=== PATIENT | male | born 1950 | race Two or more races ===

== ENCOUNTER 2025-03-26 02:49 | Inpatient (IN) | payer MEDICARE, OTHER ==
[~2025-03-26] VITALS: Ht 172.7 cm; Wt 95.4 kg
[~2025-03-26 02:49] MED LIST: DESV100T8 OR; ESOM20CA PO; FLUO20CA19 PO; LOVA40TA72 PO; NEBI10TA2 PO
--- NOTE | 2025-03-26 03:16 | ED.PDOC ---
Altered Mental Status HPI Comments 74 year old male presents to the ED via EMS with a a chief compliant of ALOC onset today. Per EMS, patient's called 911 due to patient being altered, he was found on the toilet was not able to get up due to weakness. Upon EMS arrival, patient was A&O x1, baseline is A&O x4. EMS was told by , for the past 2 weeks patient has been experiencing generalized weakness, had an appointment this morning at [facility] for admission, to follow up on his Leukemia. Glucose read "high" in route to ED and upon ED arrival. Patient is poor historian, only states he is not feeling well. PMHx Leukemia, HTN, HLD. No other symptoms or modifying factors present at this time. Chief Complaint: ALOC Time Seen by MD: 03:05 Primary Care Provider: GALEN Andrews Notes: Medications, Allergies Allergies: Coded Allergies: NO KNOWN ALLERGIES (Unverified , 12/04/14) Home Meds Reported Medications Desvenlafaxine (DESVENLAFAXINE ER) 100 Mg Tab, 100 MG OR DAILY, TAB 12/04/14 Nebivolol Hcl (Bystolic) 10 Mg Tab, 1 TAB PO DAILY, #90 TAB 1 Refill 12/04/14 Lovastatin (Lovastatin) 40 Mg Tab, 1 TAB PO DAILY, #30 TAB 5 Refills 12/04/14 Fluoxetine Hcl (Pmdd) (Fluoxetine) 20 Mg Cap, 1 CAP PO DAILY, #90 CAP 1 Refill 12/04/14 Esomeprazole Magnesium Trihydr (Nexium) 20 Mg Cap, 1 CAP PO DAILY, #30 CAP 2 Refills 12/04/14 Information Source: Emergency Med Personnel Mode of Arrival: EMS Severity: Moderate Timing: Hours Duration: Since onset Prehospital treatment: None Quality: Decreased Alertness, Change in Behavior Recent: None History of: None Past Medical History PAST MEDICAL HISTORY: Cancer, Depression, High Lipids, HTN Family History Family History: Unobtainable Social History Smoker: Cigarettes, Greater Than 1 Pack/Day Alcohol: Heavy Drugs: Denies Drug Use Lives In: Home Unable to Obtain due to: Altered Mental Status Physical Exam General Appearance: Normal, Other (confused) HEENT: Normal ENT Inspection, Pharynx Normal, TMs Normal Neck: Full Range of Motion, Non-Tender, Normal, Normal Inspection Respiratory: Chest Non-Tender, Lungs Clear, No Accessory Muscle Use, No Respiratory Distress, Normal Breath Sounds Cardiovascular: No Edema, No JVD, No Murmur, No Gallop, Tachycardia Breast Exam: Deferred Gastrointestinal: No Organomegaly, Non Tender, No Pulsatile Mass, Normal Bowel Sounds, Soft Genitalia: Deferred Pelvic: Deferred Rectal: Deferred Extremities: No calf tenderness, Normal capillary refill, Normal inspection, Normal range of motion, Non-tender, No pedal edema Musculoskeletal : Apperance: Normal Neurologic: Disoriented Cerebellar Function: Normal Reflexes: Normal Skin: Dry, Normal Color, Warm Lymphatic: No Adenopathy Was a procedure done? Was a procedure done?: No Differential Diagnosis (ALOC) Differential Diagnosis: Hypoglycemia, DKA, Encephalopathy, Closed Head Injury X-Ray, Labs, Meds, VS Vital Signs Date Time Temp Pulse Resp B/P (MAP) Pulse Ox O2 Delivery O2 Flow Rate FiO2 03/26/25 02:55 97.9 125 18 180/100 95 97.9 03/26/25 02:54 115 Lab Test 03/26/25 04:03 Range/Units White Blood Count 15.5 H 4.4-10.8 10^3/uL Red Blood Count 5.80 4.5-5.90 10^6/uL Hemoglobin 16.5 13.5-17.5 g/dL Hematocrit 53.1 H 41.0-53.0 % Mean Corpuscular Volume 91.5 80.0-100.0 fL Mean Corpuscular Hemoglobin 28.5 28.0-32.0 pg Mean Corpuscular Hemoglobin Concent 31.1 L 32.0-36.0 g/dL Red Cell Distribution Width 16.2 H 11.8-14.3 % Platelet Count 196 140-450 10^3/uL Mean Platelet Volume 8.4 6.9-10.8 fL Neutrophils (%) (Auto) 91.7 H 37.0-80.0 % Lymphocytes (%) (Auto) 2.0 L 10.0-50.0 % Monocytes (%) (Auto) 6.2 0.0-12.0 % Eosinophils (%) (Auto) 0.0 0.0-7.0 % Basophils (%) (Auto) 0.1 0.0-2.0 % Neutrophils # (Auto) 14.2 H 1.6-8.6 10 ^3/uL Lymphocytes # (Auto) 0.3 L 0.4-5.4 10 ^3/uL Monocytes # (Auto) 1.0 0-1.3 10 ^3/uL Eosinophils # (Auto) 0 0-0.8 10 ^3/uL Basophils # (Auto) 0 0-0.2 10 ^3/uL Nucleated Red Blood Cells 0.1 % Sodium Level 134 L 136-145 mmol/L Potassium Level 6.7 *H 3.5-5.1 mmol/L Chloride Level 99 98-107 mmol/L Carbon Dioxide Level 13 L 20-31 mmol/L Anion Gap 22 H 5-15 Blood Urea Nitrogen 40 H 9-23 mg/dL Creatinine 2.46 H 0.700-1.30 mg/dL Glomerular Filtration Rate Calc 26 >90 mL/min BUN/Creatinine Ratio 16.3 10.0-20.0 Serum Glucose Pending Lactic Acid Level 2.3 *H 0.4-2.0 mmol/L Calcium Level 8.8 8.7-10.4 mg/dL Troponin I High Sensitivity 18 </=54 ng/L B-Type Natriuretic Peptide Pending Beta-Hydroxybutyric Acid Pending Current Medications Medications (Trade) Dose Ordered Sig/Rudy Route Start Time Stop Time Status Last Admin Sodium Chloride 1,000 ml @ 1,000 mls/hr Q1H ONCE IV 03/26/25 03:15 03/26/25 04:14 DC 03/26/25 03:21 [place] [address] Ph: [phone] DIAGNOSTIC IMAGING Diagnostic Imaging Report : [id number] Signed PATIENT: MONA BANEGAS ACCT: [id number] UNIT: [id number] : 1950 LOC: ER ROOM / BED: / AGE / SEX: 74 / M ADM STATUS: REG ER SERVICE 0303 ORDERING PHYSICIAN: AMINA GRAY MD PROCEDURE(s): HWOCT - HEAD WITHOUT CONTRAST REASON: [facility] ORDER NUMBER(s): [id number], ACCESSION NUMBER(s): [id number] EXAM: CT HEAD WITHOUT CONTRAST INDICATION: ams TECHNIQUE: CT of the head without intravenous contrast. Radiation Dose : 1. Head: CT Dose: CTDI volume is 64.09 mGy. Dose-length product is 1262.87 mGy*cm The dose indicators for CT are the volume Computed Tomography (CT) Dose Index (CTDIvol) and the Dose Length Product (DLP), and are measured in units of mGy and mGy-cm, respectively. These indicators are not patient dose, but values generated from the CT scanner acquisition factors. The report includes radiation exposure data for exposures received during this examination. COMPARISON: None FINDINGS: There is no evidence of acute intracranial hemorrhage, extra-axial collection, mass effect, midline shift, herniation or hydrocephalus. Chronic appearing infarct within the left basal ganglia. Increased prominence of the ventricles, sulci and cisterns is consistent with the sequelae of atrophic cortical volume loss. The rodriguez-white differentiation is intact. Moderate diffuse confluent periventricular and subcortical white matter hypoattenuation is nonspecific but may be related to small vessel ischemic disease. The visualized paranasal sinuses and mastoid air cells are clear. The surrounding soft tissues and osseous structures are unremarkable. IMPRESSION: 1. No acute intracranial abnormality. 2. Chronic sequelae of microangiopathy and atrophic cortical volume loss. 3. Chronic appearing left basal ganglia infarct. Radiation optimization: All CT scans at this facility use at least one of these dose optimization techniques: automated exposure control mA and/or kV adjustment per patient size (includes targeted exams where dose is matched to clinical indication) or iterative reconstruction. ATED BY: RAMU MULLER MD DICTATED DATE/TIME: 03/26/25342 SIGNED BY: RAMU MULLER MD SIGNED DATE/TIME: 03/26/25342 CC: [place] [address] Ph: [phone] DIAGNOSTIC IMAGING Diagnostic Imaging Report : [id number] Signed PATIENT: MONA BANEGAS ACCT: [id number] UNIT: [id number] : 1950 LOC: ER ROOM / BED: / AGE / SEX: 74 / M ADM STATUS: REG ER SERVICE 030 ORDERING PHYSICIAN: AMINA GRAY MD PROCEDURE(s): CXRP - CHEST PORTABLE REASON: [facility] ORDER NUMBER(s): [id number], ACCESSION NUMBER(s): [id number] CHEST RADIOGRAPH Indication: ams Technique: Single frontal view of the chest was obtained COMPARISON: CT NECK CHEST W CONTRAST on DOS: 01/01/25 FINDINGS: Lines and Tubes: None Lungs: Clear Pleura: No effusion. No pneumothorax. Cardiomediastinal contours: Unremarkable Bones: Unremarkable IMPRESSION: 1. No acute disease. ATED BY: RAMU MULLER MD DICTATED DATE/TIME: 03/26/25340 SIGNED BY: RAMU MULLER MD SIGNED DATE/TIME: 03/26/25340 CC: Time of 1ST Reevaluation: 03:35 Reevaluation 1ST: Unchanged Patient Education/Counseling: Other Family Education/Counseling: No Family Present SEPSIS Sepsis Screen Date sepsis recognized/suspect: Mar 26, 2025 Time Sepsis recognized/suspect: 301 Recent Procedure: No On Antibiotic Therapy: No Respiratory Rate >20: No Heart Rate >90: Yes Temp<36 C (96.8 F) or >38.3 C: No SBP <90 or MAP <65 mmHG: No New Acute Mental Status Change: Yes Is the patient on CPAP, BIPAP,: No Physician Orders Basic Metabolic Panel (03/26/25 03:03) B-Type Natriuretic Peptide (03/26/25 03:03) Urinalysis (03/26/25 03:03) Blood Culture (03/26/25 03:03) Chest Portable (03/26/25 03:03) Head Without Contrast (03/26/25 03:03) Troponin-I Hs (03/26/25 04:03) Troponin-I Hs (03/26/25 06:03) Electrocardigram (03/26/25 03:14) Venous Blood Gas (03/26/25 04:40) Beta-Hydroxybutyrate (03/26/25 04:40) Sodium Chloride 0.9% (03/26/25 04:45) Insulin R (Human) (Insulin R) (03/26/25 04:45) Calcium Gluc 1,000mg/50ml-Ns (03/26/25 04:45) Insulin Drip Protocol (03/26/25 ) Sodium Chloride 0.9% (03/26/25 04:45) Sodium Chloride 0.9% (03/26/25 08:45) Sodium Chloride 0.9% (03/26/25 10:45) Insulin Algorithm # 1 (03/26/25 04:45) Dextrose 50% Syringe (03/26/25 04:45) Glucose Blood (Accu-Chek Comfort Curve T (03/26/25 06:00) Phosphorus (03/26/25 04:41) Magnesium (03/26/25 04:41) Basic Metabolic Panel (03/26/25 04:41) Basic Metabolic Panel (03/26/25 10:41) Basic Metabolic Panel (03/26/25 16:41) Basic Metabolic Panel (03/26/25 22:41) Neurological Assessment (03/26/25 04:41) Vs/Hemodynamics .PER UNIT PROTOCOL (03/26/25 04:41) Long Acting Insulin Lantus (03/26/25 04:45) Long Acting Insulin Lantus (03/27/25 10:00) Vital Signs Date Time Temp Pulse Resp B/P (MAP) Pulse Ox O2 Delivery O2 Flow Rate FiO2 03/26/25 02:55 97.9 125 18 180/100 95 97.9 03/26/25 02:54 115 Laboratory Tests Test 03/26/25 04:03 Lactic Acid Level 2.3 mmol/L (0.4-2.0) *H White Blood Count 15.5 10^3/uL (4.4-10.8) H Medications Medications Dose Ordered Sig/Rudy Route Start Time Stop Time Status Last Admin Dose Admin Sodium Chloride 1,000 ml @ 1,000 mls/hr Q1H ONCE IV 03/26/25 03:15 03/26/25 04:14 DC 03/26/25 03:21 Departure 1 Departure Time of Disposition: 04:43 (Patient with a acute metabolic encephalopathy and likely DKA. Patient also with a hyperkalemia. We will start patient on in the syndrome and admit patient for further workup and expert consultation) Impression: Primary Impression: DKA (diabetic ketoacidosis) Qualified Codes: E11.10 - Type 2 diabetes mellitus with ketoacidosis without coma Additional Impression: Acute metabolic encephalopathy Disposition: ADMITTED INPATIENT Admit to: ICU Condition: Critical Critical Care Note Critical Care Time?: Yes Critical care comment: Acute metabolic encephalopathy in DKA Authorized and Performed by: Amina Gray MD Total critical care time: Approximately 133 minutes Due to a high probability of clinically significant, life threatening deterioration, the patient required my highest level of preparedness to intervene emergently and I personally spent this critical care time directly and personally managing the patient. This critical care time included obtaining a history; examining the patient; pulse oximetry; ordering and review of studies; arranging urgent treatment with development of a management plan; evaluation of patient's response to treatment; frequent reassessment; and, discussions with other providers. This critical care time was performed to assess and manage the high probability of imminent, life-threatening deterioration that could result in multi-organ failure. It was exclusive of separately billable procedures and treating other patients and teaching time. Please see my other sections and the rest of the note for further information on patient assessment and treatment. Stability Stability form required: No I personally scribed for AMINA GRAY MD ([email or web address]) on 03/26/25 at 03:16. Electr onically submitted by Karla Mota ([email or web address]). I personally scribed for AMINA GRAY MD ([email or web address]) on 03/26/25 at 04:40. Electronically submitted by Karla Mota ([email or web address]). AMINA GRAY MD Mar 26, 2025 03:16
[2025-03-26] MEDS: SODIUM CHLORIDE 0.9% 1,000 ML IV ONE ×2 (03:21→06:24)
--- NOTE | 2025-03-26 03:44 | DVH ---
CHEST RADIOGRAPH Indication: ams Technique: Single frontal view of the chest was obtained COMPARISON: CT NECK CHEST W CONTRAST on DOS: 01/01/25 FINDINGS: Lines and Tubes: None Lungs: Clear Pleura: No effusion. No pneumothorax. Cardiomediastinal contours: Unremarkable Bones: Unremarkable IMPRESSION: 1. No acute disease.
--- NOTE | 2025-03-26 03:45 | DVH ---
EXAM: CT HEAD WITHOUT CONTRAST INDICATION: ams TECHNIQUE: CT of the head without intravenous contrast. Radiation Dose : 1. Head: CT Dose: CTDI volume is 64.09 mGy. Dose-length product is 1262.87 mGy*cm The dose indicators for CT are the volume Computed Tomography (CT) Dose Index (CTDIvol) and the Dose Length Product (DLP), and are measured in units of mGy and mGy-cm, respectively. These indicators are not patient dose, but values generated from the CT scanner acquisition factors. The report includes radiation exposure data for exposures received during this examination. COMPARISON: None FINDINGS: There is no evidence of acute intracranial hemorrhage, extra-axial collection, mass effect, midline s hift, herniation or hydrocephalus. Chronic appearing infarct within the left basal ganglia. Increased prominence of the ventricles, sulci and cisterns is consistent with the sequelae of atrophi c cortical volume loss. The rodriguez-white differentiation is intact. Moderate diffuse confluent periventricular and subcortical white matter hypoattenuation is nonspecifi c but may be related to small vessel ischemic disease. The visualized paranasal sinuses and mastoid air cells are clear. The surrounding soft tissues and osseous structures are unremarkable. IMPRESSION: 1. No acute intracranial abnormality. 2. Chronic sequelae of microangiopathy and atrophic cortical volume loss. 3. Chronic appearing left basal ganglia infarct. Radiation optimization: All CT scans at this facility use at least one of these dose optimization triny hniques: automated exposure control mA and/or kV adjustment per patient size (includes targeted exam s where dose is matched to clinical indication) or iterative reconstruction.
[2025-03-26 04:00] VITALS: PULSE 105; RESP 23; O2SAT 97
[2025-03-26 04:27] LABS: Hematocrit 53.1 % (41.0-53.0); Hemoglobin 16.5 g/dL (13.5-17.5); Mean Corpuscular Hemoglobin 28.5 pg (28.0-32.0); Mean Corpuscular Volume 91.5 fL (80.0-100.0); Nucleated Red Blood Cells % 0.1 %
[2025-03-26 04:28] LABS: Chloride 99 mmol/L (98-107)
[2025-03-26 04:29] LABS: Anion Gap 22 (5-15); Calcium 8.8 mg/dL (8.7-10.4)
[2025-03-26 04:34] LABS: BUN/Creatinine Ratio 16.3 (10.0-20.0)
[2025-03-26 04:37] LABS: Blood Urea Nitrogen 40 mg/dL (9-23); Carbon Dioxide 13 mmol/L (20-31); Sodium 134 mmol/L (136-145)
[2025-03-26 04:38] LABS: Lactic Acid w/Reflex 2.3 mmol/L (0.4-2.0); Potassium 6.7 mmol/L (3.5-5.1)
[2025-03-26] MEDS ORDERED: DEXTROSE (50%) 50ML SYRG IV PRN ×2 (04:45→21:15)
[2025-03-26 04:53] LABS: Glucose 983 mg/dL (74-106)
[2025-03-26 05:20] LABS: Base Excess -11.0 mmol/L (-2.0-3.0)
[2025-03-26] MEDS: CALCIUM GLUC 1,000mg/50ml-NS 50 ML IV SCH (05:20)
[2025-03-26 05:29] LABS: Magnesium 3.5 mg/dL (1.6-2.6)
[2025-03-26] MEDS: InsuLIN REG 1unit/0.01ml Soln (100units/ml) IV ONE (05:29)
[2025-03-26] MEDS: INSULIN LANTUS (GLARGINE) 1 /0.01ml (100units/ml) SC ONE (05:35)
[2025-03-26] MEDS: INSULIN DRIP 100 UNIT/100ML 100 ML IV SCH (05:49)
[2025-03-26] MEDS: ACCU-CHEK COMFORT CURVE STRIP VI SCH ×2 (06:00→23:25)
[2025-03-26 06:44] LABS: Urine Protein, UAD Negative (Negative)
--- NOTE | 2025-03-26 06:52 | ECG ---
[facility] Test Date: 2025-03-26 Test Time: 02:54:54 Pat Name: MONA BANEGAS Department: [facility] ED Patient ID: [facility]-[id number] Room: 0232T Gender: M Test Operator: MARILUZ : 1950 Requested By: AMINA GRAY Order Number: [id number] Reading MD: Vaibhav Kingsley Measurements Intervals [place] Rate: 115 P: 33 MD: 146 QRS: -3 QRSD: 84 T: 77 QT: 307 QTc: 425 Interpretive Statements Sinus tachycardia Abnormal R-wave progression, early transition Electronically Signed On 03-27-2025 17:02:10 PDT by Vaibhav Kingsley Please click the below link to view image of tracing.
[2025-03-26 07:38] VITALS: PULSE 101; RESP 21; O2SAT 96
[2025-03-26] MEDS ORDERED: MONT-8 PO (08:12)
[2025-03-26] MEDS ORDERED: OLAN1TAB7 PO (08:12)
[2025-03-26] MEDS ORDERED: GABA-1250 PO (08:12)
[2025-03-26] MEDS ORDERED: PRED10TA PO (08:12)
[2025-03-26] MEDS ORDERED: AMLO1TAB22 PO (08:13)
[2025-03-26] MEDS ORDERED: ACETAMINOPHEN 325 MG TAB PO PRN (08:15)
[2025-03-26] MEDS ORDERED: MORPHINE SULFATE INJ 2 MG/ml SYRG IV PRN (08:15)
[2025-03-26] MEDS ORDERED: DOCUSATE SOD 100 MG CAP PO PRN (08:15)
[2025-03-26] MEDS ORDERED: ONDANSETRON HCL 4 MG/2 ML VIAL IV PRN (08:15)
[2025-03-26] MEDS ORDERED: NITROGLYCERIN 0.4 MG SL TAB SL PRN (08:15)
[2025-03-26] MEDS ORDERED: HYDROcodone-ACET 5/325MG TAB PO PRN (08:15)
--- NOTE | 2025-03-26 08:15 | DVHHP2 ---
History of Present Illness Reason for Visit: ALOC History of Present Illness Evin Caballero is a 74-year-old male with pat medical history of hypertension, hyperlipidemia, and leukemia in remission, who was brought to the hospital due to altered level of consciousness. states he has been becoming more weak and altered for the last 2 weeks. states she called EMS due to patient being confused on the toilet this morning, and too weak to get off the toilet. When speaking with the she states that they did not know that he was diabetic, and he has not been treated for diabetes. Cardiovascular: HTN, hyperipidemia Heme/Onc: Cancer (leukemia in remission, H/O prostate cancer) Past Surgical History: None Smoke: Quit (1 year ago) ALCOHOL: occassional Drugs: None Lives: with Family Domestic Violence: Neg Review of Systems Constitutional: Yes: Weakness; No: Fever, Chills, Sweats, Malaise, Other Eyes: No: Pain, Vision change, Conjunctivae inflammation, Eyelid inflammation, Other, Redness ENT: No: Ear pain, Ear discharge, Nose pain, Nose discharge, Nose congestion, Mouth pain, Mouth swelling, Throat pain, Throat swelling, Other Respiratory: No: Cough, Dry, Shortness of breath, SOB with excertion, Wheezing, Hemoptysis, Pleuritic Pain, Sputum, Wheezing, Other Cardiovascular: No: Chest Pain, Palpitations, Orthopnea, Paroxysmal Noc. Dyspnea, Edema, Lt Headedness, Other Gastrointestinal: No: Nausea, Vomiting, Abdominal Pain, Diarrhea, Constipation, Melena, Hematochezia, Other Genitourinary: No Dysuria, No Frequency, No Incontinence, No Hematuria, No Retention, No Other Musculoskeletal: No: other, neck pain, shoulder pain, arm pain, back pain, hand pain, leg pain, foot pain Skin: No: Rash, Lesions, Jaundice, Bruising, Other Neurological: Weakness, Incoordination, Confusion; No: Numbness, Change in speech, Seizures, Other Allergies: Coded Allergies: NO KNOWN ALLERGIES (Unverified , 12/04/14) Medications Current Medications Medications Dose Ordered Sig/Rudy Route Start Time Stop Time Status Last Admin Dose Admin Sodium Chloride 1,000 ml @ 500 mls/hr Q2H IV 03/26/25 04:45 03/26/25 08:44 Sodium Chloride 1,000 ml @ 250 mls/hr Q4H IV 03/26/25 08:45 03/26/25 10:44 Sodium Chloride 1,000 ml @ 150 mls/hr Q6H40M IV 03/26/25 10:45 Insulin Human (Reg)/Sodium Chloride 100 ml @ 0.5 mls/hr Q24H IV 03/26/25 04:45 03/26/25 05:49 6 MLS/HR Dextrose 50 ml UD PRN IV 03/26/25 04:45 Diagnostic Test (Pha) 1 strip Q90MIN 03/26/25 06:00 03/26/25 06:00 1 STRIP Insulin Glargine 15 units DAILY SC 03/27/25 10:00 Acetaminophen/ Hydrocodone Bitart 1 tab Q4HP PRN PO 03/26/25 08:15 UNV Ondansetron HCl 4 mg Q4HP PRN IV 03/26/25 08:15 UNV Docusate Sodium 100 mg BIDPRN PRN PO 03/26/25 08:15 UNV Acetaminophen 650 mg Q6HP PRN PO 03/26/25 08:15 UNV Nitroglycerin 0.4 mg Q5MINP PRN SL 03/26/25 08:15 UNV Morphine Sulfate 2 mg Q30M PRN IV 03/26/25 08:15 UNV Exam Vital Signs Vital Signs Date Time Temp Pulse Resp B/P (MAP) Pulse Ox O2 Delivery O2 Flow Rate FiO2 03/26/25 06:00 111 24 156/93 (114) 93 03/26/25 04:00 Nasal Cannula* 2 28 03/26/25 03:11 98.8 98.8 General Appearance: Alert, moderate distress, Other (Oriented x 1) HEENT: Atraumatic, PERRLA, Other (mucous membr dry) Respiratory: Clear to auscultation, Normal air movement Cardiovascular: Normal S1, Normal S2, Other (ST) Abdominal: Normal bowel sounds, Soft Extremities: No clubbing, No cyanosis, No edema, Normal pulses Skin: No rashes, No breakdown, No significant lesion Neuro: Normal speech Psych/Mental Status: Other (confused, agitated) Labs/Xrays Labs Test 03/26/25 06:54 03/26/25 06:12 03/26/25 05:13 03/26/25 04:03 Range/Units POC Glucose > 600 *H 70-106 mg/dl Urine Color Light-yellow Yellow Urine Clarity Clear Clear Urine pH 5.0 5.0-9.0 Urine Specific [place] 1.029 1.001-1.035 Urine Protein Negative Negative Urine Ketones 2+ H Negative Urine Blood 3+ H Negative /uL Urine Nitrite Negative Negative Urine Bilirubin Negative Negative Urine Urobilinogen Normal Negative mg/dL Urine Leukocyte Esterase Negative Negative /uL Urine RBC 1 0 - 3 /hpf Urine Microscopic WBC 1 0-3 /HPF Urine Squamous Epithelial Cells Few <5 /hpf Urine Bacteria Few H None Seen /hpf Urine Mucus Few None Seen Urine Glucose 4+ H Normal mg/dL Blood Gas Specimen Type Arterial Blood Gas Sample Site Vbg - n/a Blood Gas Patient Temperature 37.0 Arterial Blood Date Drawn [id number] Arterial Blood pH 7.269 L 7.350-7.450 Arterial Blood Partial Pressure CO2 32.8 L 35.0-48.0 mmHg Arterial Blood Partial Pressure O2 41.9 *L 83.0-108.0 mmHg Arterial Blood HCO3 14.7 L 21.0-28.0 mmol/L Arterial Blood Base Excess -11.0 L -2.0-3.0 mmol/L Cy Test N/a Blood Gas Modality Room air FiO2 % 21.0 Blood Gas Critical Value Read Back Yes Blood Gas Notified Whom Md aj malloy Blood Gas Notified Time [id number] Blood Gas Notified By Lele dupree White Blood Count 15.5 H 4.4-10.8 10^3/uL Red Blood Count 5.80 4.5-5.90 10^6/uL Hemoglobin 16.5 13.5-17.5 g/dL Hematocrit 53.1 H 41.0-53.0 % Mean Corpuscular Volume 91.5 80.0-100.0 fL Mean Corpuscular Hemoglobin 28.5 28.0-32.0 pg Mean Corpuscular Hemoglobin Concent 31.1 L 32.0-36.0 g/dL Red Cell Distribution Width 16.2 H 11.8-14.3 % Platelet Count 196 140-450 10^3/uL Mean Platelet Volume 8.4 6.9-10.8 fL Neutrophils (%) (Auto) 91.7 H 37.0-80.0 % Lymphocytes (%) (Auto) 2.0 L 10.0-50.0 % Monocytes (%) (Auto) 6.2 0.0-12.0 % Eosinophils (%) (Auto) 0.0 0.0-7.0 % Basophils (%) (Auto) 0.1 0.0-2.0 % Neutrophils # (Auto) 14.2 H 1.6-8.6 10 ^3/uL Lymphocytes # (Auto) 0.3 L 0.4-5.4 10 ^3/uL Monocytes # (Auto) 1.0 0-1.3 10 ^3/uL Eosinophils # (Auto) 0 0-0.8 10 ^3/uL Basophils # (Auto) 0 0-0.2 10 ^3/uL Nucleated Red Blood Cells 0.1 % Sodium Level 134 L 136-145 mmol/L Potassium Level 6.7 *H 3.5-5.1 mmol/L Chloride Level 99 98-107 mmol/L Carbon Dioxide Level 13 L 20-31 mmol/L Anion Gap 22 H 5-15 Blood Urea Nitrogen 40 H 9-23 mg/dL Creatinine 2.46 H 0.700-1.30 mg/dL Glomerular Filtration Rate Calc 26 >90 mL/min BUN/Creatinine Ratio 16.3 10.0-20.0 Serum Glucose 983 *H 74-106 mg/dL Lactic Acid Level 2.3 *H 0.4-2.0 mmol/L Calcium Level 8.8 8.7-10.4 mg/dL Phosphorus Level 5.9 H 2.4-5.1 mg/dL Magnesium Level 3.5 H 1.6-2.6 mg/dL Troponin I High Sensitivity 18 </=54 ng/L B-Type Natriuretic Peptide 13.53 0-100 pg/mL Beta-Hydroxybutyric Acid > 4.500 H < 0.4 mmol/L Plasma/Serum Blood Alcohol < 3.0 <10 mg/dL CHEST RADIOGRAPH FINDINGS: Lines and Tubes: None Lungs: Clear Pleura: No effusion. No pneumothorax. Cardiomediastinal contours: Unremarkable Bones: Unremarkable IMPRESSION: 1. No acute disease. EXAM: CT HEAD WITHOUT CONTRAST FINDINGS: There is no evidence of acute intracranial hemorrhage, extra-axial collection, mass effect, midline shift, herniation or hydrocephalus. Chronic appearing infarct within the left basal ganglia. Increased prominence of the ventricles, sulci and cisterns is consistent with the sequelae of atrophic cortical volume loss. The rodriguez-white differentiation is intact. Moderate diffuse confluent periventricular and subcortical white matter hypoattenuation is nonspecific but may be related to small vessel ischemic disease. The visualized paranasal sinuses and mastoid air cells are clear. The surrounding soft tissues and osseous structures are unremarkable. IMPRESSION: 1. No acute intracranial abnormality. 2. Chronic sequelae of microangiopathy and atrophic cortical volume loss. 3. Chronic appearing left basal ganglia infarct. SEPSIS Sepsis Screen Date sepsis recognized/suspect: Mar 26, 2025 Time Sepsis recognized/suspect: 301 Recent Procedure: No On Antibiotic Therapy: No Respiratory Rate >20: No Heart Rate >90: Yes Temp<36 C (96.8 F) or >38.3 C: No SBP <90 or MAP <65 mmHG: No New Acute Mental Status Change: Yes Is the patient on CPAP, BIPAP,: No Physician Orders Blood Culture (03/26/25 03:03) Chest Portable (03/26/25 03:03) Head Without Contrast (03/26/25 03:03) Troponin-I Hs (03/26/25 04:03) Troponin-I Hs (03/26/25 06:03) Venous Blood Gas (03/26/25 04:40) Insulin Drip Protocol (03/26/25 ) Sodium Chloride 0.9% (03/26/25 04:45) Sodium Chloride 0.9% (03/26/25 08:45) Sodium Chloride 0.9% (03/26/25 10:45) Insulin Drip 100 Unit/100ml (Myxredlin 1 (03/26/25 04:45) Dextrose 50% Syringe (03/26/25 04:45) Glucose Blood (Accu-Chek Comfort Curve T (03/26/25 06:00) Basic Metabolic Panel (03/26/25 04:41) Basic Metabolic Panel (03/26/25 10:41) Basic Metabolic Panel (03/26/25 16:41) Basic Metabolic Panel (03/26/25 22:41) Neurological Assessment (03/26/25 04:41) Vs/Hemodynamics .PER UNIT PROTOCOL (03/26/25 04:41) Insulin Lantus (Glargine) (Lantus) (03/27/25 10:00) Admit (03/26/25 08:08) Code Status (03/26/25 08:08) Hydrocodone-Acet 5/325mg Tab ([place] 5/32 (03/26/25 08:15) Ondansetron Hcl (Zofran) (03/26/25 08:15) Docusate Sodium Capsule (Colace Capsule) (03/26/25 08:15) Fall Risk Precautions In Place QSHIFT (03/26/25 08:08) Complete Blood Count (03/27/25 04:00) Comprehensive Metabolic Panel (03/27/25 04:00) Npo (Nothing By Mouth) Diet (03/26/25 Breakfast) Condition: Critical (03/26/25 08:08) Acetaminophen Tablet (Tylenol Tablet) (03/26/25 08:15) Nitroglycerin Sublingual (Ntrostat Subli (03/26/25 08:15) Morphine Sulfate Injection (03/26/25 08:15) Stat Ekg For Chest Pain (03/26/25 08:08) Notify Of Changes From Base (03/26/25 08:08) Video And Sound Recorder For 24 Hours (03/26/25 08:08) Emergency Dysrhythmia Protocol (03/26/25 08:08) Rhythm Strips Once Every Shift (03/26/25 08:08) Oxygen By Nasal Cannula (03/26/25 08:08) Gabapentin Capsule (Neurontin Capsule) (03/26/25 14:00) Montelukast Tablet (Singulair Tablet) (03/26/25 10:00) Olanzapine Tablet (Zyprexa Tablet) (03/26/25 22:00) (Nf) Prednisone (03/26/25 10:00) Amlodipine Tablet (Norvasc Tablet) (03/26/25 10:00) Vital Signs Date Time Temp Pulse Resp B/P (MAP) Pulse Ox O2 Delivery O2 Flow Rate FiO2 03/26/25 06:00 111 24 156/93 (114) 93 03/26/25 04:00 105 13 165/91 (115) 97 03/26/25 04:00 105 23 97 Nasal Cannula* 2 28 03/26/25 04:00 105 03/26/25 03:11 98.8 114 18 157/100 (119) 94 98.8 03/26/25 02:55 97.9 125 18 180/100 95 97.9 03/26/25 02:54 115 Laboratory Tests Test 03/26/25 04:03 Lactic Acid Level 2.3 mmol/L (0.4-2.0) *H White Blood Count 15.5 10^3/uL (4.4-10.8) H Medications Medications Dose Ordered Sig/Rudy Route Start Time Stop Time Status Last Admin Dose Admin Calcium Gluconate/ Sodium Chloride 50 ml @ 100 mls/hr Q30M IV 03/26/25 04:45 03/26/25 05:44 DC 03/26/25 05:53 100 MLS/HR Diagnostic Test (Pha) 1 strip Q90MIN 03/26/25 06:00 03/26/25 06:00 1 STRIP Insulin Glargine 15 units ONCE ONCE SC 03/26/25 04:45 03/26/25 04:53 DC 03/26/25 05:35 15 UNITS Insulin Human (Reg)/Sodium Chloride 100 ml @ 0.5 mls/hr Q24H IV 03/26/25 04:45 03/26/25 05:49 6 MLS/HR Insulin Human Regular 5 units ONCE ONCE IV 03/26/25 04:45 03/26/25 04:53 DC 03/26/25 05:29 5 UNITS Sodium Chloride 1,000 ml @ 1,000 mls/hr Q1H ONCE IV 03/26/25 03:15 03/26/25 04:14 DC 03/26/25 03:21 1,000 MLS/HR Sodium Chloride 1,000 ml @ 1,000 mls/hr Q1H ONCE IV 03/26/25 04:45 03/26/25 05:44 DC 03/26/25 06:24 1,000 MLS/HR Assessment/Plan Assessment/Plan Assessment: Acute metabolic encephalopathy, DKA (diabetic ketoacidosis), Lactic acidosis, Hyperkalemia, UTI, Acute Kidney Injury, Leukocytosis, Uncontrolled diabetes, Hypertension, Hyperlipidemia, Plan: Admit to ICU, Insulin drip, IV hydration, IV antibiotics, Manage/Monitor electrolytes closely, BMP Q 6 hours, A1c, Home medications reconciled, Plan discussed with: Patient, Spouse My Orders Orders - DIAZ BORRERO Procedure Category Date Status Time Admit ADMIT 03/26/25 Transmitted 08:08 Code Status CODE 03/26/25 Transmitted 08:08 Hydrocodone-Acet PHA 03/26/25 Logged 5/325mg Tab ([place] 08:15 Ondansetron Hcl PHA 03/26/25 Logged (Zofran) 08:15 Docusate Sodium PHA 03/26/25 Logged Capsule (Colace 08:15 Fall Risk Precautions [place] 03/26/[address] 08:08 Complete Blood Count LAB 03/27/25 Verified 04:00 Comprehensive LAB 03/27/25 Verified Metabolic Panel 04:00 Npo (Nothing By DIET 03/26/25 Transmitted Mouth) Diet Breakfast Condition: Critical [place] 03/26/25 In Process 08:08 Acetaminophen Tablet PHA 03/26/25 Logged (Tylenol Tablet) 08:15 Nitroglycerin PHA 03/26/25 Logged Sublingual (Ntrostat 08:15 Morphine Sulfate PHA 03/26/25 Logged Injection 08:15 Stat Ekg For Chest [place] 03/26/25 In Process Pain 08:08 Notify Md Of Changes [facility] 03/26/25 In Process From Base 08:08 Video And Sound Recorder For [facility] 03/26/25 In Process 24 Hours 08:08 Emergency Dysrhythmia [facility] 03/26/25 In Process Protocol 08:08 Rhythm Strips Once [facility] 03/26/25 In Process Every Shift 08:08 Oxygen By Nasal RT 03/26/25 Transmitted Cannula 08:08 Gabapentin Capsule PHA 03/26/25 Transmitted (Neurontin Capsule) 14:00 Montelukast Tablet PHA 03/26/25 Transmitted (Singulair Tablet) 10:00 Olanzapine Tablet PHA 03/26/25 Transmitted (Zyprexa Tablet) 22:00 (Nf) Prednisone PHA 03/26/25 Transmitted 10:00 Amlodipine Tablet [facility] 03/26/25 Verified (Norvasc Tablet) 10:00 Date of Service: Mar 26, 2025 Billing Provider: DIAZ BORRERO Common Visit Codes: [id number] INP/OBS CARE (HIGH) DIAZ BORRERO Mar 26, 2025 08:15
[2025-03-26] MEDS: SODIUM CHLORIDE 0.9% 1,000 ML IV SCH ×3 (08:19→10:45)
[2025-03-26 10:00] LABS: Potassium 4.7 mmol/L (3.5-5.1)
[2025-03-26] MEDS ORDERED: PREDNISONE PO SCH (10:00)
[2025-03-26 10:01] LABS: Anion Gap 18 (5-15); Carbon Dioxide 21 mmol/L (20-31)
[2025-03-26 10:02] LABS: Calcium 9.5 mg/dL (8.7-10.4); Chloride 110 mmol/L (98-107); Sodium 149 mmol/L (136-145)
[2025-03-26 10:06] LABS: BUN/Creatinine Ratio 28.2 (10.0-20.0)
[2025-03-26 10:08] LABS: Blood Urea Nitrogen 62 mg/dL (9-23); Glucose 371 mg/dL (74-106)
[2025-03-26] MEDS: MONTELUKAST SODIUM 10 MG TAB PO SCH (12:01)
[2025-03-26] MEDS: GABAPENTIN 300 MG CAP PO SCH (13:34)
[2025-03-26] MEDS: D5W/SOD CHL 0.45%/KCL 40MEQ 1,000 ML IV SCH (16:15)
[2025-03-26 16:47] LABS: Potassium 4.9 mmol/L (3.5-5.1)
[2025-03-26 16:48] LABS: Anion Gap 15 (5-15); Calcium 9.0 mg/dL (8.7-10.4); Carbon Dioxide 23 mmol/L (20-31)
[2025-03-26 16:52] LABS: Chloride 113 mmol/L (98-107); Sodium 151 mmol/L (136-145)
[2025-03-26 16:53] LABS: BUN/Creatinine Ratio 31.3 (10.0-20.0)
[2025-03-26 16:54] LABS: Blood Urea Nitrogen 61 mg/dL (9-23); Glucose 329 mg/dL (74-106)
[2025-03-26 22:17] VITALS: PULSE 56; RESP 18; O2SAT 91
[2025-03-26] MEDS: OLANZapine 5 MG TAB PO SCH (23:22)
[2025-03-26] MEDS: InsuLIN REG 1unit/0.01ml Soln (100units/ml) SC SCH (23:28)
[2025-03-27] VITALS (10 sets, daily range): BP systolic 120–157; BP diastolic 73–102; PULSE 94–101; RESP 18; TEMP 97.1–97.7; O2SAT 91–96
[2025-03-27 01:15] LABS: Potassium 4.9 mmol/L (3.5-5.1)
[2025-03-27 01:16] LABS: Anion Gap 12 (5-15); Carbon Dioxide 21 mmol/L (20-31)
[2025-03-27 01:17] LABS: Calcium 9.0 mg/dL (8.7-10.4)
[2025-03-27 01:21] LABS: BUN/Creatinine Ratio 16.6 (10.0-20.0); Chloride 115 mmol/L (98-107); Sodium 148 mmol/L (136-145)
[2025-03-27 01:34] LABS: Blood Urea Nitrogen 31 mg/dL (9-23); Glucose 315 mg/dL (74-106)
[2025-03-27 06:18] LABS: Hematocrit 49.2 % (41.0-53.0); Hemoglobin 16.2 g/dL (13.5-17.5); Mean Corpuscular Hemoglobin 28.0 pg (28.0-32.0); Mean Corpuscular Volume 85.0 fL (80.0-100.0); Nucleated Red Blood Cells % 0.0 %
[2025-03-27 06:46] LABS: Albumin 4.2 g/dL (3.2-4.8); Alkaline Phosphatase 93 U/L (46-116); Anion Gap 14 (5-15); BUN/Creatinine Ratio 24.1 (10.0-20.0); Calcium 8.7 mg/dL (8.7-10.4); Carbon Dioxide 21 mmol/L (20-31); Potassium 4.8 mmol/L (3.5-5.1); Total Protein 6.5 g/dL (5.7-8.2)
[2025-03-27 06:47] LABS: Bilirubin, Total 0.5 mg/dL (0.2-1.0)
[2025-03-27 06:48] LABS: Alanine Aminotransferase 68 U/L (7-40); Blood Urea Nitrogen 40 mg/dL (9-23); Chloride 115 mmol/L (98-107); Glucose 340 mg/dL (74-106); Sodium 150 mmol/L (136-145)
--- NOTE | 2025-03-27 11:48 | DVHPN2 ---
Eyes: No Pain, No Vision change, No Conjunctivae inflammation, No Eyelid inflammation, No Other, No Redness ENT: No Ear pain, No Ear discharge, No Nose pain, No Nose discharge, No Nose congestion, No Mouth pain, No Mouth swelling, No Throat pain, No Throat swelling, No Other Cardiovascular: No Chest Pain, No Palpitations, No Orthopnea, No Paroxysmal Noc. Dyspnea, No Edema, No Lt Headedness, No Other Respiratory: No Cough, No Dry, No Shortness of breath, No SOB with excertion, No Wheezing, No Hemoptysis, No Pleuritic Pain, No Sputum, No Other Gastrointestinal: No Nausea, No Vomiting, No Abdominal Pain, No Diarrhea, No Constipation, No Melena, No Hematochezia, No Other Genitourinary: No Dysuria, No Frequency, No Incontinence, No Hematuria, No Retention, No Other Musculoskeletal: No other, No neck pain, No shoulder pain, No arm pain, No back pain, No hand pain, No leg pain, No foot pain Skin: No Rash, No Lesions, No Jaundice, No Bruising, No Other Objective Vitals Vital Signs Date Time Temp Pulse Resp B/P (MAP) Pulse Ox O2 Delivery O2 Flow Rate FiO2 03/27/25 09:02 97.7 96 18 148/102 (117) 92 97.7 03/27/25 08:00 Nasal Cannula* 4 36 Intake/Output Intake and Output 03/27/25 07:00 Intake Total 104.5 ml Output Total 400 ml Balance -295.5 ml Intake Oral 100 ml IV Total 4.5 ml Output Urine Total 400 ml # Bowel Movements 1 Medications Current Medications Medications Dose Ordered Sig/Rudy Route Start Time Stop Time Status Last Admin Dose Admin Insulin Glargine 15 units DAILY SC 03/27/25 10:00 Acetaminophen/ Hydrocodone Bitart 1 tab Q4HP PRN PO 03/26/25 08:15 Ondansetron HCl 4 mg Q4HP PRN IV 03/26/25 08:15 Docusate Sodium 100 mg BIDPRN PRN PO 03/26/25 08:15 Acetaminophen 650 mg Q6HP PRN PO 03/26/25 08:15 Nitroglycerin 0.4 mg Q5MINP PRN SL 03/26/25 08:15 Morphine Sulfate 2 mg Q30M PRN IV 03/26/25 08:15 Gabapentin 300 mg TID PO 03/26/25 14:00 03/27/25 06:31 300 MG Montelukast Sodium 10 mg DAILY PO 03/26/25 10:00 03/26/25 12:01 10 MG Olanzapine 5 mg HS PO 03/26/25 22:00 03/26/25 23:22 5 MG Patient Own Medication 5 tab BID PO 03/26/25 10:00 UNV Amlodipine Besylate 5 mg DAILY PO 03/26/25 10:00 03/27/25 08:32 5 MG Ceftriaxone Sodium 50 ml @ 100 mls/hr DAILY@09 IV 03/26/25 09:00 03/27/25 08:32 100 MLS/HR Prednisone 5 mg BID PO 03/26/25 10:00 03/26/25 23:22 5 MG Diagnostic Test (Pha) 1 strip IQ4HR 03/27/25 00:00 03/27/25 08:26 1 STRIP Insulin Human Regular IQ4HR SC 03/27/25 00:00 03/27/25 08:35 12 UNITS Dextrose 50 ml UD PRN IV 03/26/25 21:15 Laboratory Results Laboratory Tests 03/27/25 04:58 Chemistry Test 03/26/25 16:24 03/27/25 00:48 03/27/25 04:58 Calcium Level 9.0 mg/dL (8.7-10.4) 9.0 mg/dL (8.7-10.4) 8.7 mg/dL (8.7-10.4) Albumin 4.2 g/dL (3.2-4.8) Total Protein 6.5 g/dL (5.7-8.2) LFT Test 03/27/25 04:58 Alanine Aminotransferase (ALT) 68 U/L (7-40) H Alkaline Phosphatase 93 U/L (46-116) Aspartate Amino Transferase (AST) 59 U/L (13-40) H Total Bilirubin 0.5 mg/dL (0.2-1.0) Urinalysis Test 03/26/25 06:12 Urine Color Light-yellow (Yellow) Urine Clarity Clear (Clear) Urine pH 5.0 (5.0-9.0) Urine Specific [place] 1.029 (1.001-1.035) Urine Protein Negative (Negative) Urine Ketones 2+ (Negative) H Urine Blood 3+ /uL (Negative) H Urine Nitrite Negative (Negative) Urine Bilirubin Negative (Negative) Urine Urobilinogen Normal mg/dL (Negative) Urine Leukocyte Esterase Negative /uL (Negative) Urine RBC 1 /hpf (0 - 3) Urine Microscopic WBC 1 /HPF (0-3) Urine Squamous Epithelial Cells Few /hpf (<5) Urine Bacteria Few /hpf (None Seen) H Urine Mucus Few (None Seen) Urine Glucose 4+ mg/dL (Normal) H Microbiology Microbiology Date/Time Source Procedure Growth Status 03/26/25 04:00 Blood Blood Culture - Preliminary Resulted [place] AGUILERA MD Mar 27, 2025 11:48
[2025-03-27] MEDS: INSULIN LANTUS (GLARGINE) 1 /0.01ml (100units/ml) SC SCH ×2 (12:03→23:57)
--- NOTE | 2025-03-27 12:16 | DVHPN2 ---
Subjective Seen and examined at bedside, family at bedside. Per family patient has not been able to walk for the past 3 months. Yesterday, patient was having worsening confusion. New onset DM2. Patient is on Prednisone? unsure why. Changes from previous H/P or p: No Changes Eyes: No Pain, No Vision change, No Conjunctivae inflammation, No Eyelid inflammation, No Other, No Redness ENT: No Ear pain, No Ear discharge, No Nose pain, No Nose discharge, No Nose congestion, No Mouth pain, No Mouth swelling, No Throat pain, No Throat swelling, No Other Cardiovascular: No Chest Pain, No Palpitations, No Orthopnea, No Paroxysmal Noc. Dyspnea, No Edema, No Lt Headedness, No Other Respiratory: No Cough, No Dry, No Shortness of breath, No SOB with excertion, No Wheezing, No Hemoptysis, No Pleuritic Pain, No Sputum, No Other Gastrointestinal: No Nausea, No Vomiting, No Abdominal Pain, No Diarrhea, No Constipation, No Melena, No Hematochezia, No Other Genitourinary: No Dysuria, No Frequency, No Incontinence, No Hematuria, No Retention, No Other Musculoskeletal: No other, No neck pain, No shoulder pain, No arm pain, No back pain, No hand pain, No leg pain, No foot pain Skin: No Rash, No Lesions, No Jaundice, No Bruising, No Other Objective Vitals Vital Signs Date Time Temp Pulse Resp B/P (MAP) Pulse Ox O2 Delivery O2 Flow Rate FiO2 03/27/25 09:02 97.7 96 18 148/102 (117) 92 97.7 03/27/25 08:00 Nasal Cannula* 4 36 Intake/Output Intake and Output 03/27/25 07:00 Intake Total 104.5 ml Output Total 400 ml Balance -295.5 ml Intake Oral 100 ml IV Total 4.5 ml Output Urine Total 400 ml # Bowel Movements 1 Exam Gen: in bed NAD Cvs: N S1/S2, RRR Resp: Diminshed Abd: Soft, 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 Medications Current Medications Medications Dose Ordered Sig/Rudy Route Start Time Stop Time Status Last Admin Dose Admin Acetaminophen/ Hydrocodone Bitart 1 tab Q4HP PRN PO 03/26/25 08:15 Ondansetron HCl 4 mg Q4HP PRN IV 03/26/25 08:15 Docusate Sodium 100 mg BIDPRN PRN PO 03/26/25 08:15 Acetaminophen 650 mg Q6HP PRN PO 03/26/25 08:15 Nitroglycerin 0.4 mg Q5MINP PRN SL 03/26/25 08:15 Morphine Sulfate 2 mg Q30M PRN IV 03/26/25 08:15 Gabapentin 300 mg TID PO 03/26/25 14:00 03/27/25 06:31 300 MG Montelukast Sodium 10 mg DAILY PO 03/26/25 10:00 03/27/25 12:02 10 MG Olanzapine 5 mg HS PO 03/26/25 22:00 03/26/25 23:22 5 MG Patient Own Medication 5 tab BID PO 03/26/25 10:00 UNV Amlodipine Besylate 5 mg DAILY PO 03/26/25 10:00 03/27/25 08:32 5 MG Ceftriaxone Sodium 50 ml @ 100 mls/hr DAILY@09 IV 03/26/25 09:00 03/27/25 08:32 100 MLS/HR Prednisone 5 mg BID PO 03/26/25 10:00 03/27/25 12:02 5 MG Diagnostic Test (Pha) 1 strip IQ4HR 03/27/25 00:00 03/27/25 11:57 1 STRIP Insulin Human Regular IQ4HR SC 03/27/25 00:00 03/27/25 12:04 12 UNITS Dextrose 50 ml UD PRN IV 03/26/25 21:15 Insulin Glargine 20 units BID SC 03/27/25 22:00 UNV Laboratory Results Laboratory Tests 03/27/25 04:58 Chemistry Test 03/26/25 16:24 03/27/25 00:48 03/27/25 04:58 Calcium Level 9.0 mg/dL (8.7-10.4) 9.0 mg/dL (8.7-10.4) 8.7 mg/dL (8.7-10.4) Albumin 4.2 g/dL (3.2-4.8) Total Protein 6.5 g/dL (5.7-8.2) LFT Test 03/27/25 04:58 Alanine Aminotransferase (ALT) 68 U/L (7-40) H Alkaline Phosphatase 93 U/L (46-116) Aspartate Amino Transferase (AST) 59 U/L (13-40) H Total Bilirubin 0.5 mg/dL (0.2-1.0) Urinalysis Test 03/26/25 06:12 Urine Color Light-yellow (Yellow) Urine Clarity Clear (Clear) Urine pH 5.0 (5.0-9.0) Urine Specific [place] 1.029 (1.001-1.035) Urine Protein Negative (Negative) Urine Ketones 2+ (Negative) H Urine Blood 3+ /uL (Negative) H Urine Nitrite Negative (Negative) Urine Bilirubin Negative (Negative) Urine Urobilinogen Normal mg/dL (Negative) Urine Leukocyte Esterase Negative /uL (Negative) Urine RBC 1 /hpf (0 - 3) Urine Microscopic WBC 1 /HPF (0-3) Urine Squamous Epithelial Cells Few /hpf (<5) Urine Bacteria Few /hpf (None Seen) H Urine Mucus Few (None Seen) Urine Glucose 4+ mg/dL (Normal) H Microbiology Microbiology Date/Time Source Procedure Growth Status 03/26/25 04:00 Blood Blood Culture - Preliminary Resulted Assessment/Plan Assessment/Plan # Sepsis due to UTI? - Rocephin # Metabolic Encephalopathy - Improving # Acute Resp Failure - Titrate Oxygen down # HIPOLITO due to ATN - Nephro Consult # DM2 A1c 12.5, new onset - Lantus + SSI # H/o AML treated at [facility] # Deconditioned - PT Eval # Goals of care discussion >18 mins FULL CODE Plan discussed with: Patient, Spouse My Orders Orders - ANABELL SARGENT MD Procedure Category Date Status Time *Dr. [facility] CONS 03/27/25 Transmitted -[place] 12:02 Insulin Lantus PHA 03/27/25 Logged (Glargine) (Lantus) 22:00 Comprehensive LAB 03/28/25 Verified Metabolic Panel 04:00 Complete Blood Count LAB 03/28/25 Verified 04:00 Pt Request For Service PT 03/27/25 Logged 12:03 Thyroid Stimulating LAB 03/27/25 Transmitted Hormone 12:03 Vitamin B12 LAB 03/27/25 Transmitted 12:03 D5w/Sod Chl 0.45% PHA 03/27/25 Logged (D5w 1/2ns) 12:15 Date of Service: Mar 27, 2025 Billing Provider: ANABELL SARGENT MD Common Visit Codes: [id number] INP/OBS CARE(HIGH) Secondary Visit Codes: [id number] CARE PLAN 30 MINUTES ANABELL SARGENT MD Mar 27, 2025 12:16
[2025-03-27] MEDS: D5W/SOD CHL 0.45% 1,000 ML IV ONE (12:30)
--- NOTE | 2025-03-27 14:20 | DVH ---
INDICATION: HIPOLITO TECHNIQUE: Multiple real-time sonographic images of the kidneys and bladder were obtained. COMPARISON: None FINDINGS: The right kidney measures 12 cm in length, which is normal in size. There is normal echogen icity of the right kidney. No hydronephrosis. The left kidney measures 11 cm in length, which is normal in size. There is normal echogenicity of th e left kidney. No hydronephrosis. Subcentimeter left nonobstructing renal stone. No large intraluminal masses are seen in the bladder. IMPRESSION: 1. Normal sonographic appearance of the kidneys. No hydronephrosis. Subcentimeter nonobstructing left renal stone.
[2025-03-27 16:06] LABS: Potassium 4.4 mmol/L (3.5-5.1)
[2025-03-27 16:07] LABS: Anion Gap 11 (5-15); Carbon Dioxide 23 mmol/L (20-31); Chloride 112 mmol/L (98-107); Sodium 146 mmol/L (136-145)
[2025-03-27 16:08] LABS: Calcium 8.7 mg/dL (8.7-10.4)
[2025-03-27 16:12] LABS: BUN/Creatinine Ratio 20.3 (10.0-20.0)
[2025-03-27 16:13] LABS: Blood Urea Nitrogen 29 mg/dL (9-23); Glucose 289 mg/dL (74-106)
[2025-03-27] MEDS: NYSTATIN (MOUTH-THROAT) 500,000 UNITS/5 ML SUSP MT ONE (16:28)
[2025-03-27] MEDS: NYSTATIN (MOUTH-THROAT) 500,000 UNITS/5 ML SUSP MT SCH (18:16)
--- NOTE | 2025-03-27 20:27 | DVHCONRES ---
Date Seen: Mar 27, 2025 Resident Creating Document: HORTENCIALISETHMADHAV RESIDENT History of Present Illness 74-year-old male with past medical history of hypertension, hyperlipidemia and leukemia in remission presented with altered level of consciousness. Patient was found to be in blood glucose level of 983 and potassium level of 6.7 which was corrected and was started on insulin drip for possible DKA/HHS. Patient was treated with IV fluids, later was switched to insulin Lantus. Patient seen and examined at bedside Currently on room air Mentioned no active symptoms Does not remember why he came to the hospital Denied any chronic kidney disease Past medical history hypertension, hyperlipidemia and leukemia in remission Past surgical history Unobtainable Social history as per hospitalist Cigarette smoking greater than one pack per day, heavy alcohol use Medication history Amlodipine Test venlafaxine Asthma pyrazole Fluoxetine Gabapentin Lovastatin Montelukast Nebivolol Olanzapine Prednisone Past Medical History As described in the HPI Family History: Family history: Diabetes mellitus G8 SISTER Allergies: Coded Allergies: NO KNOWN ALLERGIES (Unverified , 12/04/14) Home Meds Reported Medications Amlodipine Besylate (Amlodipine Besylate) 5 Mg Tab, 1 TAB PO DAILY 03/26/25 Prednisone (Prednisone) 10 Mg Tab, 5 TAB PO BID 03/26/25 Olanzapine (OLANZAPINE) 5 Mg Tab, 1 TAB PO HS 03/26/25 Montelukast Sodium (MONTELUKAST SODIUM) 10 Mg Tab, 1 TAB PO DAILY 03/26/25 Gabapentin (Gabapentin) 300 Mg Cap, 1 CAP PO TID 03/26/25 Desvenlafaxine (DESVENLAFAXINE ER) 100 Mg Tab, 100 MG OR DAILY, TAB 12/04/14 Nebivolol Hcl (Bystolic) 10 Mg Tab, 1 TAB PO DAILY, #90 TAB 1 Refill 12/04/14 Lovastatin (Lovastatin) 40 Mg Tab, 1 TAB PO DAILY, #30 TAB 5 Refills 12/04/14 Fluoxetine Hcl (Pmdd) (Fluoxetine) 20 Mg Cap, 1 CAP PO DAILY, #90 CAP 1 Refill 12/04/14 Esomeprazole Magnesium Trihydr (Nexium) 20 Mg Cap, 1 CAP PO DAILY, #30 CAP 2 Refills 12/04/14 Current Medications Current Medications Medications (Trade) Dose Ordered Sig/Rudy Route PRN Reason Start Time Stop Time Status Last Admin Insulin Glargine (Lantus) 15 units DAILY SC 03/27/25 10:00 03/27/25 12:10 DC 03/27/25 12:03 Olanzapine (ZyPREXA Tablet) 5 mg HS PO 03/26/25 22:00 03/26/25 23:22 Diagnostic Test (Pha) (Accu-Chek Comfort Curve T) 1 strip IQ4HR 03/27/25 00:00 03/27/25 19:55 Insulin Human Regular (InsuLIN R) IQ4HR SC 03/27/25 00:00 03/27/25 20:05 Dextrose 50 ml UD PRN IV Blood Sugar LESS THAN 60 03/26/25 21:15 Insulin Glargine (Lantus) 20 units BID SC 03/27/25 22:00 Amlodipine Besylate (Norvasc Tablet) 10 mg DAILY PO 03/28/25 10:00 Clonidine HCl (Catapres Tablet) 0.1 mg Q4HP PRN PO SBP>150 03/27/25 12:15 Nystatin (Mycostatin (Mouth-Throat)) 5 ml QID MT 03/27/25 18:00 03/27/25 18:16 Review of Systems As described in the HPI Vital Signs Vital Signs Date Time Temp Pulse Resp B/P (MAP) Pulse Ox O2 Delivery O2 Flow Rate FiO2 03/27/25 16:23 97.5 96 18 142/81 (101) 93 97.5 03/27/25 08:00 Nasal Cannula* 4 36 Physical Exam Examination General Appearance: Alert, Oriented X3, Cooperative, No acute distress, on 2 L of oxygen through nasal cannula HEENT: EOMI Respiratory: Clear to auscultation, Normal air movement Cardiovascular: Regular rate, Normal S1, Normal S2 Abdominal: Normal bowel sounds Extremities: No cyanosis, No edema, Normal pulses, No tenderness/swelling Skin: No rashes, No breakdown Neuro: Normal speech and tone Labs/Diagnostic Data Labs Test 03/27/25 16:32 03/27/25 15:38 03/27/25 04:58 03/26/25 16:24 Range/Units POC Glucose 282 H 70-106 mg/dl Sodium Level 146 H 136-145 mmol/L Potassium Level 4.4 3.5-5.1 mmol/L Chloride Level 112 H 98-107 mmol/L Carbon Dioxide Level 23 20-31 mmol/L Anion Gap 11 5-15 Blood Urea Nitrogen 29 #H 9-23 mg/dL Creatinine 1.43 H 0.700-1.30 mg/dL Glomerular Filtration Rate Calc 51 >90 mL/min BUN/Creatinine Ratio 20.3 H 10.0-20.0 Serum Glucose 289 H 74-106 mg/dL Calcium Level 8.7 8.7-10.4 mg/dL White Blood Count 13.3 H 4.4-10.8 10^3/uL Red Blood Count 5.79 4.5-5.90 10^6/uL Hemoglobin 16.2 13.5-17.5 g/dL Hematocrit 49.2 41.0-53.0 % Mean Corpuscular Volume 85.0 # 80.0-100.0 fL Mean Corpuscular Hemoglobin 28.0 28.0-32.0 pg Mean Corpuscular Hemoglobin Concent 33.0 32.0-36.0 g/dL Red Cell Distribution Width 14.9 H 11.8-14.3 % Platelet Count 176 140-450 10^3/uL Mean Platelet Volume 8.1 6.9-10.8 fL Neutrophils (%) (Auto) 88.7 H 37.0-80.0 % Lymphocytes (%) (Auto) 6.8 L 10.0-50.0 % Monocytes (%) (Auto) 4.1 0.0-12.0 % Eosinophils (%) (Auto) 0.3 0.0-7.0 % Basophils (%) (Auto) 0.1 0.0-2.0 % Neutrophils # (Auto) 11.8 H 1.6-8.6 10 ^3/uL Lymphocytes # (Auto) 0.9 0.4-5.4 10 ^3/uL Monocytes # (Auto) 0.5 0-1.3 10 ^3/uL Eosinophils # (Auto) 0 0-0.8 10 ^3/uL Basophils # (Auto) 0 0-0.2 10 ^3/uL Nucleated Red Blood Cells 0.0 % Total Bilirubin 0.5 0.2-1.0 mg/dL Aspartate Amino Transferase (AST) 59 H 13-40 U/L Alanine Aminotransferase (ALT) 68 H 7-40 U/L Alkaline Phosphatase 93 46-116 U/L Total Protein 6.5 5.7-8.2 g/dL Albumin 4.2 3.2-4.8 g/dL Vitamin B12 Level 1208 H 211-911 pg/mL Beta-Hydroxybutyric Acid 2.658 H < 0.4 mmol/L Thyroid Stimulating Hormone (TSH) 0.28 L 0.55-4.78 uIU/mL Lactic Acid Level 1.3 0.4-2.0 mmol/L Troponin I High Sensitivity 40 </=54 ng/L Test 03/26/25 06:12 03/26/25 05:13 03/26/25 04:03 Range/Units Urine Color Light-yellow Yellow Urine Clarity Clear Clear Urine pH 5.0 5.0-9.0 Urine Specific [place] 1.029 1.001-1.035 Urine Protein Negative Negative Urine Ketones 2+ H Negative Urine Blood 3+ H Negative /uL Urine Nitrite Negative Negative Urine Bilirubin Negative Negative Urine Urobilinogen Normal Negative mg/dL Urine Leukocyte Esterase Negative Negative /uL Urine RBC 1 0 - 3 /hpf Urine Microscopic WBC 1 0-3 /HPF Urine Squamous Epithelial Cells Few <5 /hpf Urine Bacteria Few H None Seen /hpf Urine Mucus Few None Seen Urine Glucose 4+ H Normal mg/dL Blood Gas Specimen Type Arterial Blood Gas Sample Site Vbg - n/a Blood Gas Patient Temperature 37.0 Arterial Blood Date Drawn [id number] Arterial Blood pH 7.269 L 7.350-7.450 Arterial Blood Partial Pressure CO2 32.8 L 35.0-48.0 mmHg Arterial Blood Partial Pressure O2 41.9 *L 83.0-108.0 mmHg Arterial Blood HCO3 14.7 L 21.0-28.0 mmol/L Arterial Blood Base Excess -11.0 L -2.0-3.0 mmol/L Cy Test N/a Blood Gas Modality Room air FiO2 % 21.0 Blood Gas Critical Value Read Back Yes Blood Gas Notified Whom Md aj malloy Blood Gas Notified Time [id number] Blood Gas Notified By Lele dupree Hemoglobin A1c 12.5 H <5.7 % A1C Phosphorus Level 5.9 H 2.4-5.1 mg/dL Magnesium Level 3.5 H 1.6-2.6 mg/dL B-Type Natriuretic Peptide 13.53 0-100 pg/mL Plasma/Serum Blood Alcohol < 3.0 <10 mg/dL Microbiology Date/Time Source Procedure Growth Status 03/26/25 04:00 Blood Blood Culture - Preliminary Resulted Assessment Assessment # HIPOLITO, questionable baseline kidney function, questionable CKD, hemodynamically mediated due to HHS - Input output 104/400 with a negative of-295 mL - labs, creatinine improved from 2.46 on presentation to 1.43 today # hyperkalemia, resolved # hypernatremia # new onset uncontrolled diabetes mellitus, type 2 # Sepsis due to UTI? # Metabolic Encephalopathy # H/o AML Plan/Recommendation PLAN Monitor input and output Monitor kidney function and electrolytes Ordered renal ultrasound Order urine protein to creatinine ratio, urine sodium, and creatinine, awaiting results Continue IV fluids, D5 half NS at 75 cc/hour. Case discussion with Dr Miller. Plan discussed with: Patient, Other ADDENDUM ADDENDUM agree with resident plan MADHAV LAMB Mar 27, 2025 20:27 ELIJAH MILLER MD Mar 27, 2025 21:44
[2025-03-27] MEDS: D5W/SOD CHL 0.45% 1,000 ML IV SCH (22:21)
[2025-03-28 05:00] VITALS: BP 146/72; PULSE 86; RESP 18; TEMP 98; O2SAT 93
[2025-03-28 07:34] LABS: Hematocrit 47.3 % (41.0-53.0); Hemoglobin 15.7 g/dL (13.5-17.5); Mean Corpuscular Hemoglobin 28.4 pg (28.0-32.0); Mean Corpuscular Volume 85.4 fL (80.0-100.0); Nucleated Red Blood Cells % 0.0 %
[2025-03-28 07:41] LABS: Alkaline Phosphatase 87 U/L (46-116); Anion Gap 9 (5-15); BUN/Creatinine Ratio 17.6 (10.0-20.0); Carbon Dioxide 26 mmol/L (20-31); Magnesium 2.5 mg/dL (1.6-2.6); Potassium 3.7 mmol/L (3.5-5.1); Sodium 144 mmol/L (136-145); Total Protein 6.2 g/dL (5.7-8.2)
[2025-03-28 07:42] LABS: Albumin 3.9 g/dL (3.2-4.8); Bilirubin, Total 1.1 mg/dL (0.2-1.0)
[2025-03-28 07:55] LABS: Alanine Aminotransferase 63 U/L (7-40); Blood Urea Nitrogen 23 mg/dL (9-23); Chloride 109 mmol/L (98-107); Glucose 261 mg/dL (74-106)
[2025-03-28 07:56] LABS: Calcium 8.5 mg/dL (8.7-10.4)
[2025-03-28 08:00] VITALS: PULSE 84
[2025-03-28 09:00] VITALS: BP 128/81; PULSE 90; RESP 20; TEMP 97.5; O2SAT 91
[2025-03-28] MEDS ORDERED: NYS5LQ MT (11:40)
[2025-03-28] MEDS ORDERED: INSU1INJ19 SC (11:40)
[2025-03-28] MEDS ORDERED: CEPH250C PO (11:40)
[2025-03-28] MEDS ORDERED: BLOO-329 XX (12:49)
[2025-03-28] MEDS ORDERED: LANC-347 XX (12:49)
--- NOTE | 2025-03-28 12:50 | DVHDS2 ---
Discharge Summary Date of Admission Mar 26, 2025 at 08:08 Date of Discharge: Mar 28, 2025 Admitting Diagnosis Sepsis Labs/Diagnostic Data: Laboratory Results Test 03/28/25 08:54 03/28/25 07:00 03/27/25 04:58 03/26/25 16:24 POC Glucose 247 mg/dl (70-106) White Blood Count 9.9 10^3/uL (4.4-10.8) Red Blood Count 5.54 10^6/uL (4.5-5.90) Hemoglobin 15.7 g/dL (13.5-17.5) Hematocrit 47.3 % (41.0-53.0) Mean Corpuscular Volume 85.4 fL (80.0-100.0) Mean Corpuscular Hemoglobin 28.4 pg (28.0-32.0) Mean Corpuscular Hemoglobin Concent 33.3 g/dL (32.0-36.0) Red Cell Distribution Width 14.7 % (11.8-14.3) Platelet Count 155 10^3/uL (140-450) Mean Platelet Volume 7.8 fL (6.9-10.8) Neutrophils (%) (Auto) 77.4 % (37.0-80.0) Lymphocytes (%) (Auto) 15.0 % (10.0-50.0) Monocytes (%) (Auto) 5.1 % (0.0-12.0) Eosinophils (%) (Auto) 2.0 % (0.0-7.0) Basophils (%) (Auto) 0.5 % (0.0-2.0) Neutrophils # (Auto) 7.6 10 ^3/uL (1.6-8.6) Lymphocytes # (Auto) 1.5 10 ^3/uL (0.4-5.4) Monocytes # (Auto) 0.5 10 ^3/uL (0-1.3) Eosinophils # (Auto) 0.2 10 ^3/uL (0-0.8) Basophils # (Auto) 0 10 ^3/uL (0-0.2) Nucleated Red Blood Cells 0.0 % Sodium Level 144 mmol/L (136-145) Potassium Level 3.7 mmol/L (3.5-5.1) Chloride Level 109 mmol/L (98-107) Carbon Dioxide Level 26 mmol/L (20-31) Anion Gap 9 (5-15) Blood Urea Nitrogen 23 mg/dL (9-23) Creatinine 1.31 mg/dL (0.700-1.30) Glomerular Filtration Rate Calc 56 mL/min (>90) BUN/Creatinine Ratio 17.6 (10.0-20.0) Serum Glucose 261 mg/dL (74-106) Calcium Level 8.5 mg/dL (8.7-10.4) Magnesium Level 2.5 mg/dL (1.6-2.6) Total Bilirubin 1.1 mg/dL (0.2-1.0) Aspartate Amino Transferase (AST) 45 U/L (13-40) Alanine Aminotransferase (ALT) 63 U/L (7-40) Alkaline Phosphatase 87 U/L (46-116) Total Protein 6.2 g/dL (5.7-8.2) Albumin 3.9 g/dL (3.2-4.8) Vitamin B12 Level 1208 pg/mL (211-911) Beta-Hydroxybutyric Acid 2.658 mmol/L (< 0.4) Thyroid Stimulating Hormone (TSH) 0.28 uIU/mL (0.55-4.78) Lactic Acid Level 1.3 mmol/L (0.4-2.0) Troponin I High Sensitivity 40 ng/L (</=54) Test 03/26/25 06:12 03/26/25 05:13 03/26/25 04:03 Urine Color Light-yellow (Yellow) Urine Clarity Clear (Clear) Urine pH 5.0 (5.0-9.0) Urine Specific [place] 1.029 (1.001-1.035) Urine Protein Negative (Negative) Urine Ketones 2+ (Negative) Urine Blood 3+ /uL (Negative) Urine Nitrite Negative (Negative) Urine Bilirubin Negative (Negative) Urine Urobilinogen Normal mg/dL (Negative) Urine Leukocyte Esterase Negative /uL (Negative) Urine RBC 1 /hpf (0 - 3) Urine Microscopic WBC 1 /HPF (0-3) Urine Squamous Epithelial Cells Few /hpf (<5) Urine Bacteria Few /hpf (None Seen) Urine Mucus Few (None Seen) Urine Glucose 4+ mg/dL (Normal) Blood Gas Specimen Type Arterial Blood Gas Sample Site Vbg - n/a Blood Gas Patient Temperature 37.0 Arterial Blood Date Drawn [id number] Arterial Blood pH 7.269 (7.350-7.450) Arterial Blood Partial Pressure CO2 32.8 mmHg (35.0-48.0) Arterial Blood Partial Pressure O2 41.9 mmHg (83.0-108.0) Arterial Blood HCO3 14.7 mmol/L (21.0-28.0) Arterial Blood Base Excess -11.0 mmol/L (-2.0-3.0) Cy Test N/a Blood Gas Modality Room air FiO2 % 21.0 Blood Gas Critical Value Read Back Yes Blood Gas Notified Whom Md aj malloy Blood Gas Notified Time [id number] Blood Gas Notified By Gore Seamer jose hooksing Hemoglobin A1c 12.5 % A1C (<5.7) Phosphorus Level 5.9 mg/dL (2.4-5.1) B-Type Natriuretic Peptide 13.53 pg/mL (0-100) Plasma/Serum Blood Alcohol < 3.0 mg/dL (<10) Other Laboratory Tests 03/28/25 07:00 Brief Hx & Hospital Course: Evin Caballero is a 74-year-old male with a Pmhx of hypertension, hyperlipidemia, and leukemia in remission, who was brought to the hospital due to altered level of consciousness. states he has been becoming more weak and altered for the last 2 weeks. states she called EMS due to patient being confused on the toilet this morning, and too weak to get off the toilet. When speaking with the she states that they did not know that he was diabetic, and he has not been treated for diabetes. Patients A1c is 12.5. Patient also treated with Rocephin for UTI. Patient has improved, patient wishes to be discharged home with Keflex, Nystatin swish and swallow, and Insulin 70/30. Patient advised to monitor blood sugars at home and record readings to take to PCP. Patient had a walker at home and says he will go to his PCP for a Home PT referral. Condition at Discharge: Poor Final Diagnosis/Problems List # Sepsis due to UTI? - Keflex # Metabolic Encephalopathy - Improving # Acute Resp Failure- resolved # HIPOLITO due to ATN - Nephro Consult noted # Transaminitis- improving # DM2 A1c 12.5, new onset - Lantus # Merry- Nystatin swish and swallow # H/o AML treated at [facility]- Cont Prednisone # Deconditioned - PT Eval # Goals of care discussion >18 mins FULL CODE Discharge Disposition: Home Discharge Instruct/Medications Diet: Consistent carbohydrate Activity: Light activity Follow Up/Referral: PCP Medications: see [facility] Scheduled Amlodipine Besylate (Amlodipine Besylate), 1 TAB PO DAILY, (Reported) Cephalexin (Keflex Capsule), 500 MG PO TID Desvenlafaxine (Desvenlafaxine Er), 100 MG OR DAILY, (Reported) Esomeprazole Magnesium Trihydr (Nexium), 1 CAP PO DAILY, (Reported) Fluoxetine Hcl (Pmdd) (Fluoxetine), 1 CAP PO DAILY, (Reported) Gabapentin (Gabapentin), 1 CAP PO TID, (Reported) Insulin Glargine (Basaglar Kwikpen), 25 UNIT SC BID Lovastatin (Lovastatin), 1 TAB PO DAILY, (Reported) Montelukast Sodium (Montelukast Sodium), 1 TAB PO DAILY, (Reported) Nebivolol Hcl (Bystolic), 1 TAB PO DAILY, (Reported) Nystatin (Mouth-Throat) (Mycostatin (Mouth-Throat)), 5 ML MT QID Olanzapine (Olanzapine), 1 TAB PO HS, (Reported) Prednisone (Prednisone), 5 TAB PO BID, (Reported) Discharge Statement: "Patient was advised to return to the ER or call 911 if any headaches, dizziness, shortness of breath, chest pain, abdominal pain, bleeding, fevers, or worsening of medical condition. Patient was counseled about treatment plan, medications, possible side effects, patientverbalized understanding. All questions were answered to the best of my ability. This discharge took greater then 30 minutes in planning, reviewing documentation, counseling the patient, and discussing with other team members." ASSESSMENT ASSESSMENT Assessment Date of Service: Mar 28, 2025 Billing Provider: ANABELL SARGENT MD Common Visit Codes: 14563-WXE/OBS DISCH DAY >30min ANABELL SARGENT MD Mar 28, 2025 12:50
[2025-03-28 13:00] VITALS: BP 149/83; PULSE 87; RESP 20; TEMP 97.4; O2SAT 95
--- NOTE | 2025-03-28 13:18 | DVHPN2 ---
Progress Note Date Seen: Mar 28, 2025 Resident Creating Document: MADHAV LAMB RESIDENT Medical Necessity Reason Pt with a Central, PICC or Fol: No Subjective Review of Systems History of Present Illness 74-year-old male with past medical history of hypertension, hyperlipidemia and leukemia in remission presented with altered level of consciousness. Patient was found to be in blood glucose level of 983 and potassium level of 6.7 which was corrected and was started on insulin drip for possible DKA/HHS. Patient was treated with IV fluids, later was switched to insulin Lantus. Patient seen and examined at bedside Currently on room air Mentioned no active symptoms Does not remember why he came to the hospital Denied any chronic kidney disease Past medical history hypertension, hyperlipidemia and leukemia in remission Past surgical history Unobtainable Social history as per hospitalist Cigarette smoking greater than one pack per day, heavy alcohol use Medication history Amlodipine Test venlafaxine Asthma pyrazole Fluoxetine Gabapentin Lovastatin Montelukast Nebivolol Olanzapine Prednisone Interval Events 03/28/25 no complaints mentions want to go home Objective vital signs Vital Sign Date Time Temp Pulse Resp B/P (MAP) Pulse Ox O2 Delivery O2 Flow Rate FiO2 03/28/25 09:37 146/72 03/28/25 09:00 97.5 90 20 91 97.5 03/27/25 20:00 Nasal Cannula* 2 28 Total Intake and Output 03/27/25 03/27/25 03/28/25 15:00 23:00 07:00 Intake Total 425 ml 1250 ml Output Total 1100 ml 650 ml Balance -675 ml 600 ml medications Current Medications Medications Dose Ordered Sig/Rudy Route Start Time Stop Time Status Last Admin Dose Admin Acetaminophen/ Hydrocodone Bitart 1 tab Q4HP PRN PO 03/26/25 08:15 Ondansetron HCl 4 mg Q4HP PRN IV 03/26/25 08:15 Docusate Sodium 100 mg BIDPRN PRN PO 03/26/25 08:15 Acetaminophen 650 mg Q6HP PRN PO 03/26/25 08:15 Nitroglycerin 0.4 mg Q5MINP PRN SL 03/26/25 08:15 Morphine Sulfate 2 mg Q30M PRN IV 03/26/25 08:15 Gabapentin 300 mg TID PO 03/26/25 14:00 03/28/25 05:14 Montelukast Sodium 10 mg DAILY PO 03/26/25 10:00 03/28/25 09:36 Olanzapine 5 mg HS PO 03/26/25 22:00 03/27/25 22:21 Patient Own Medication 5 tab BID PO 03/26/25 10:00 UNV Ceftriaxone Sodium 50 ml @ 100 mls/hr DAILY@09 IV 03/26/25 09:00 03/28/25 09:38 Prednisone 5 mg BID PO 03/26/25 10:00 03/28/25 09:36 Diagnostic Test (Pha) 1 strip IQ4HR 03/27/25 00:00 03/28/25 12:20 Insulin Human Regular IQ4HR SC 03/27/25 00:00 03/28/25 12:27 Dextrose 50 ml UD PRN IV 03/26/25 21:15 Insulin Glargine 20 units BID SC 03/27/25 22:00 03/28/25 09:55 Amlodipine Besylate 10 mg DAILY PO 03/28/25 10:00 03/28/25 09:37 Clonidine HCl 0.1 mg Q4HP PRN PO 03/27/25 12:15 Nystatin 5 ml QID MT 03/27/25 18:00 03/28/25 12:20 Dextrose/Sodium Chloride 1,000 ml @ 75 mls/hr [id number] IV 03/27/25 20:30 03/28/25 09:46 Examination Examination General Appearance: Alert, Oriented X3, Cooperative, No acute distress, on 2 L of oxygen through nasal cannula HEENT: EOMI Respiratory: Clear to auscultation, Normal air movement Cardiovascular: Regular rate, Normal S1, Normal S2 Abdominal: Normal bowel sounds Extremities: No cyanosis, No edema, Normal pulses, No tenderness/swelling Skin: No rashes, No breakdown Neuro: Normal speech and tone laboratory and microbiology Laboratory Tests 03/28/25 07:00 Test 03/28/25 07:00 Range/Units Serum Glucose 261 H 74-106 mg/dL Microbiology Date/Time Source Procedure Growth Status 03/26/25 04:00 Blood Blood Culture - Preliminary Resulted Labs and/or images reviewed: Labs reviewed by me, Image(s) reviewed by me Problem List/Assessment/Plan Problem List/Assessment/Plan Assessment # HIPOLITO, questionable baseline kidney function, questionable CKD, hemodynamically mediated due to HHS - Input output 104/400 with a negative of -295 mL - labs, creatinine improved from 1.43 to 1.31 # hyperkalemia, resolved # hypernatremia # new onset uncontrolled diabetes mellitus, type 2 # Sepsis due to UTI? # Metabolic Encephalopathy # H/o AML PLAN Monitor input and output Monitor kidney function and electrolytes Ordered renal ultrasound Order urine protein to creatinine ratio, urine sodium, and creatinine, awaiting results Continue IV fluids, D5 half NS at 50 cc/hour. Case discussion with Dr Miller. Plan discussed with: Patient, Other My Orders My Orders Orders - MADHAV LAMB RESIDENT Procedure Category Date Status Time D5w/Sod Chl 0.45% PHA 03/27/25 In Process (D5w 1/2ns) 20:30 MADHAV LAMB RESIDENT Mar 28, 2025 13:18
[2025-03-28 14:00] VITALS: BP 146/72; TEMP 36.4
== END 2025-03-28 14:45 | disposition home or self-care (01) | DRG 871 ==
LOC: EDBD 02:49 → ER 02:49 → OVERFLOW 08:08 → TELE-EAST 22:15
PROVIDERS: ADMIT Internal Medicine; ATTEND Internal Medicine
DX: A41.9 Sepsis, unspecified organism (principal); E11.10 Type 2 diabetes mellitus with ketoacidosis without coma; G93.41 Metabolic encephalopathy; N17.0 Acute kidney failure with tubular necrosis; J96.00 Acute respiratory failure, unspecified whether with hypoxia or hypercapnia; N39.0 Urinary tract infection, site not specified; E87.0 Hyperosmolality and hypernatremia; I10 Essential (primary) hypertension; E87.5 Hyperkalemia; E78.5 Hyperlipidemia, unspecified; F17.210 Nicotine dependence, cigarettes, uncomplicated; R74.01 Elevation of levels of liver transaminase levels; B37.9 Candidiasis, unspecified; J45.909 Unspecified asthma, uncomplicated; Z85.46 Personal history of malignant neoplasm of prostate; Z79.899 Other long term (current) drug therapy; Z85.6 Personal history of leukemia; Z79.52 Long term (current) use of systemic steroids
CPT/HCPCS: 36415; 36600; 70450; 71045; 76775; 80048; 80053; 80320; 81001; 82010; 82607; 82805; 82962; 83036; 83605; 83735; 83880; 84100; 84443; 84484; 85025; 87040; 87077; 87186; 93005; 97110; 97116; 97163; 99291; 99292; G0378; J1815